=== PATIENT | female | born 1990 | race Hispanic/Latino ===

== ENCOUNTER 2019-01-12 21:37 | Emergency (ER) | payer OTHER ==
[2019-01-12] MEDS ORDERED: IPRATROPIUM/ALBUTEROL SULFATE 3 ML SOLUTION IH ONE (22:13)
[2019-01-12 22:35] LABS: RAPID GROUP A STREP NEGATIVE (NEGATIVE)
[2019-01-12] MEDS ORDERED: LIDOCAINE HCL-MPF 1% 2ML VIAL ONE (23:10)
[2019-01-12] MEDS ORDERED: CEFTRIAXONE SODIUM 1 GM ONE (23:11)
== END 2019-01-12 23:42 | disposition home or self-care (01) ==
LOC: EDH 21:37
DX: J10.00 Influenza due to other identified influenza virus with unspecified type of pneumonia (principal); Z88.0 Allergy status to penicillin
CPT/HCPCS: 71046; 87804 ×2; 87880; 94640; 96372; 99285; J0696; J3490

== ENCOUNTER 2019-09-07 17:28 | Emergency (ER) | payer SELFPAY ==
[2019-09-07] MEDS ORDERED: ACETAMINOPHEN EXTRA STRENGTH 500 MG TABLET ONE (17:53)
[2019-09-07 18:24] LABS: APPEARANCE,URINE Cloudy (CLEAR); BILIRUBIN,URINE Negative (NEGATIVE); COLOR,URINE Dark Yellow (YELLOW); GLUCOSE, URINE (UA) Negative (NEGATIVE); KETONES,URINE 40 mg/dL (NEGATIVE); LEUKOCYTE ESTERASE ,URINE Negative (NEGATIVE); NITRATE,URINE Negative (NEGATIVE); OCCULT BLOOD,URINE Trace (NEGATIVE); PH,URINE 5.5 (5.0-8.0); PROTEIN,URINE POS 1+ mg/dL (NEGATIVE)
[2019-09-07 18:32] LABS: HCG,QUAL RESULT NEGATIVE (NEGATIVE)
[2019-09-07 18:34] LABS: RAPID GROUP A STREP NEGATIVE (NEGATIVE)
[2019-09-07] MEDS ORDERED: IBUPROFEN 600 MG TABLET ONE (18:48)
[2019-09-07] MEDS ORDERED: ONDANSETRON ODT 4 MG TAB ONE (18:48)
[2019-09-07 19:01] LABS: BACTERIA,URINE Few /HPF (None Seen)
[2019-09-07 19:02] LABS: MUCUS,URINE Moderate LPF (None Seen)
== END 2019-09-07 19:12 | disposition home or self-care (01) ==
LOC: EDH 17:28
DX: J10.1 Influenza due to other identified influenza virus with other respiratory manifestations (principal); Z88.0 Allergy status to penicillin
CPT/HCPCS: 81001; 81025; 87804; 87880

== ENCOUNTER 2020-07-07 03:22 | Emergency (ER) | payer MEDICAID ==
[2020-07-07 03:45] LABS: BILIRUBIN,URINE Negative (NEGATIVE); COLOR,URINE Yellow (YELLOW); GLUCOSE, URINE (UA) Negative (NEGATIVE); KETONES,URINE Trace mg/dL (NEGATIVE); LEUKOCYTE ESTERASE ,URINE Small (NEGATIVE); NITRATE,URINE Positive (NEGATIVE); OCCULT BLOOD,URINE Moderate (NEGATIVE); PH,URINE 5.5 (5.0-8.0); PROTEIN,URINE Negative (NEGATIVE)
[2020-07-07 03:49] LABS: APPEARANCE,URINE CLOUDY (CLEAR)
[2020-07-07 04:03] LABS: BACTERIA,URINE Moderate /HPF (None Seen); MUCUS,URINE Moderate LPF (None Seen); RBC,URINE 0-1 /HPF (0-1)
[2020-07-07] MEDS ORDERED: ONDANSETRON 4MG INJ ONE (04:21)
[2020-07-07] MEDS ORDERED: FAMOTIDINE 20MG VIAL IV ONE (04:21)
[2020-07-07] MEDS ORDERED: PANTOPRAZOLE 40 MG/VIAL ONE (04:21)
[2020-07-07 04:23] LABS: BASOPHILS % (AUTO) 0.5 % (0.0-5.0); EOSINOPHILS % (AUTO) 1.6 % (0.0-8.0); HEMATOCRIT 37.6 % (36-48); LYMPHOCYTES % (AUTO) 34.6 % (21.0-51.0); MEAN CORPUSCULAR HEMOGLOBIN 29.3 pg (27.0-33.0); MEAN CORPUSCULAR HGB CONC 33.8 g/dL (32.0-36.0); MEAN CORPUSCULAR VOLUME 86.8 fL (79-99); MONOCYTES % (AUTO) 8.6 % (3.0-13.0); NEUTROPHILS % (AUTO) 54.5 % (40.0-77.0); PLATELET COUNT (AUTO) 233 K/uL (130-400); RED BLOOD CELL COUNT(AUTO) 4.33 MIL/uL (4.00-5.50); RED CELL DISTRIBUTION WIDTH 11.8 % (11.0-15.5); WHITE BLOOD COUNT (AUTO) 6.4 K/uL (4.8-10.8)
[2020-07-07 04:32] LABS: CREATININE 0.8 mg/dL (0.5-1.5); POTASSIUM 3.8 mmol/L (3.5-5.1)
[2020-07-07 04:37] LABS: BILIRUBIN,TOTAL 0.4 mg/dL (0.2-1.0); TOTAL PROTEIN, SERUM 7.7 g/dL (6.0-8.3)
[2020-07-07] MEDS ORDERED: CEFTRIAXONE 1G VIAL ONE (05:15)
[2020-07-07] MEDS ORDERED: LIDOCAINE HCL 2% VISCOUS 15 ML UDCUP ONE (05:15)
[2020-07-07] MEDS ORDERED: MAG/ALUM/SIMETH 30 ML UDCUP ONE (05:15)
[2021-02-07] MEDS ORDERED: CLIN-141 PO (00:40)
== END 2020-07-07 06:32 | disposition home or self-care (01) ==
LOC: EDH 03:22
DX: K29.00 Acute gastritis without bleeding (principal); N39.0 Urinary tract infection, site not specified; Z98.890 Other specified postprocedural states
CPT/HCPCS: 36415; 80053; 81001; 83690; 85025; 87077; 87088; 87186; 96361; 96365; 96375; 99284; C9113; J0696; J2405; J3490

== ENCOUNTER 2021-02-06 22:25 | Emergency (ER) | payer OTHER, MEDICAID ==
[~2021-02-06] VITALS: Ht 167.6 cm; Wt 63.5 kg
[2021-02-06 22:35] VITALS: BP 140/99
[2021-02-06 22:51] LABS: BASOPHILS % (AUTO) 0.4 % (0.0-5.0); EOSINOPHILS % (AUTO) 1.4 % (0.0-8.0); LYMPHOCYTES % (AUTO) 35.9 % (21.0-51.0); MEAN CORPUSCULAR HEMOGLOBIN 28.9 pg (27.0-33.0); MEAN CORPUSCULAR HGB CONC 32.9 g/dL (32.0-36.0); MEAN CORPUSCULAR VOLUME 87.9 fL (79-99); MONOCYTES % (AUTO) 9.7 % (3.0-13.0); NEUTROPHILS % (AUTO) 52.2 % (40.0-77.0); PLATELET COUNT (AUTO) 234 K/uL (130-400); RED BLOOD CELL COUNT(AUTO) 3.98 MIL/uL (4.00-5.50); RED CELL DISTRIBUTION WIDTH 12.5 % (11.0-15.5); WHITE BLOOD COUNT (AUTO) 5.7 K/uL (4.8-10.8)
[2021-02-06 22:58] LABS: CREATININE 0.9 mg/dL (0.5-1.5); POTASSIUM 3.6 mmol/L (3.5-5.1)
[2021-02-07 00:23] VITALS: BP 115/76
[2021-02-07] MEDS ORDERED: PHARMACY COMMUNICATION MISC SCH (00:30)
[2021-02-07] MEDS ORDERED: CEFAZOLIN SODIUM 1 GM VIAL IM SCH (00:30)
[2021-02-07] MEDS ORDERED: CLIN300C10 PO (00:40)
[2021-02-07] MEDS ORDERED: CLINDAMYCIN IVPB 600MG/50ML 50 ML IV ONE ×2 (00:47→01:00)
== END 2021-02-07 01:14 | disposition home or self-care (01) ==
LOC: EDH 22:25
DX: S61.511A Laceration without foreign body of right wrist, initial encounter (principal); Z88.0 Allergy status to penicillin; W22.8XXA Striking against or struck by other objects, initial encounter; Y93.89 Activity, other specified; Y92.89 Other specified places as the place of occurrence of the external cause; Y99.8 Other external cause status
CPT/HCPCS: 12002; 36415; 73100; 80048; 85025; 96374; 99284; J3490

== ENCOUNTER 2022-07-16 00:16 | Emergency (ER) | payer OTHER, MEDICAID ==
[~2022-07-16] VITALS: Ht 162.6 cm; Wt 69.5 kg
[~2022-07-16 00:16] MED LIST: CLIN-141 PO
[2022-07-16 00:21] VITALS: BP 120/68
[2022-07-16] MEDS ORDERED: IBUP-1493 PO (01:01)
[2022-07-16] MEDS ORDERED: CLIN-116 PO (01:01)
== END 2022-07-16 01:06 | disposition home or self-care (01) ==
LOC: EDH 00:16
DX: K04.7 Periapical abscess without sinus (principal); H92.01 Otalgia, right ear; Z88.0 Allergy status to penicillin